=== PATIENT | male | born 1995 | race Caucasian/White ===

== ENCOUNTER → 2016-08-24 | Outpatient (CLI) | payer BC ==
--- NOTE | 2016-08-24 18:49 | MR ---
PRE AND POSTCONTRAST ENHANCED MRI OF THE BRAIN: CLINICAL HISTORY: Headaches CONTRAST: 20 ML Multihance COMPARISON: June 22, 2012 Multiplanar and multispin-echo imaging of the brain was performed both before and after the administr ation of contrast. The ventricles, basal cisterns and sulci overlying the cerebral convexities are within normal limits. There is no evidence for midline shift or mass effect. Acute intracranial hemorrhage or extra-axial collection is not evident. Again noted and essentially unchanged is increased signal on the T2 weighted data set posterior right parietal lobe measuring 3. 1 x 1.9 cm. No significant enhancement is identified. While this could r eflect an area of remote insult or postoperative change if there is such a history, low grade glioma is not excluded. Following contrast administration, there is no evidence for pathologic enhancement or enhancing mass. The paranasal sinuses demonstrate small mucous retention cyst left maxillary sinus. Mastoid air cells are well-aerated. IMPRESSION: Stable evaluation of the brain. See above discussion.
== END | disposition home or self-care (01) ==
LOC: RADMRIMAIN 17:51
PROVIDERS: ATTEND Psychiatry & Neurology Neurology
DX: D49.6 Neoplasm of unspecified behavior of brain (principal)
CPT/HCPCS: 70553; A9577

== ENCOUNTER 2017-11-29 20:10 | Observation (INO) | payer BC ==
[2017-11-29] MEDS ORDERED: PANTOPRAZOLE 40 MG/10 ML VIAL IVP STA (20:46)
[2017-11-29] MEDS ORDERED: SODIUM CHLORIDE 0.9% 500 ML IV STA (20:46)
--- NOTE | 2017-11-29 21:29 | ED ---
General Adult HPI - General Chief complaint: GI Bleed Stated complaint: rectal bleeding Time Seen by Provider: 11/29/17 20:45 Source: patient, RN notes reviewed, old records reviewed Mode of arrival: wheelchair Limitations: no limitations - History of Present Illness Initial comments: This is a 22-year-old male the ER for evaluation. Patient states he feels very weak, significant blood per rectum 4-5 days. Increased weakness lightheadedness and dizziness with activity earlier today. Patient has had prior history of colonoscopy with history of hemorrhoids - Related Data Home Medications Medication Instructions Recorded Confirmed Multivitamins, Thera [Multivitamin 1 tab PO DAILY 11/29/17 11/29/17 (formulary)] Naproxen Sodium [Aleve] 220 mg PO BID PRN 11/29/17 11/29/17 Allergies Allergy/AdvReac Type Severity Reaction Status Date / Time Penicillins Allergy Rash/Hives Verified 11/29/17 20:58 Review of Systems ROS Statement: Those systems with pertinent positive or pertinent negative responses have been documented in the HPI. ROS Other: All systems not noted in ROS Statement are negative. Past Medical History Past Medical History: GI Bleed Additional Past Medical History / Comment(s): Polyps; Closed head injury History of Any Multi-Drug Resistant Organisms: None Reported Past Surgical History: Tonsillectomy Additional Past Surgical History / Comment(s): colonoscopy Past Psychological History: No Psychological Hx Reported Smoking Status: Never smoker Past Alcohol Use History: None Reported Past Drug Use History: None Reported General Exam - General Exam Comments Initial Comments: Pale Limitations: no limitations General appearance: alert, in no apparent distress Head exam: Present: atraumatic, normocephalic, normal inspection Eye exam: Present: normal appearance, PERRL, EOMI. Absent: scleral icterus, conjunctival injection, periorbital swelling ENT exam: Present: normal exam, mucous membranes moist Neck exam: Present: normal inspection. Absent: tenderness, meningismus, lymphadenopathy Respiratory exam: Present: normal lung sounds bilaterally. Absent: respiratory distress, wheezes, rales, rhonchi, stridor Cardiovascular Exam: Present: regular rate, normal rhythm, normal heart sounds. Absent: systolic murmur, diastolic murmur, rubs, gallop, clicks GI/Abdominal exam: Present: soft, normal bowel sounds. Absent: distended, tenderness, guarding, rebound, rigid Extremities exam: Present: normal inspection, full ROM, normal capillary refill. Absent: tenderness, pedal edema, joint swelling, calf tenderness Back exam: Present: normal inspection Neurological exam: Present: alert, oriented X3, CN II-XII intact Psychiatric exam: Present: normal affect, normal mood Skin exam: Present: warm, dry, intact, normal color. Absent: rash Course Vital Signs 11/29/17 11/29/17 20:36 21:50 Temperature 97.9 F 97.8 F Pulse Rate 101 H 85 Respiratory 18 20 Rate Blood Pressure 123/84 137/67 O2 Sat by Pulse 99 97 Oximetry - Reevaluation(s) Reevaluation #1: A she becomes very syncopal with attempt to walk or move Medical Decision Making - Medical Decision Making 22 male the ER for evaluation. Positive bright red blood per rectum, history of hemorrhoids. Patient feels light headed syncopal, near syncopal with walking and worse with movement. Patient will be admitted for monitoring of hemoglobin - Lab Data Result diagrams: 11/30/17 06:18 11/29/17 21:05 Lab Results 11/29/17 11/29/17 11/29/17 Range/Units 21:05 21:05 21:05 WBC 10.5 (3.8-10.6) k/uL RBC 4.99 (4.30-5.90) m/uL Hgb 14.2 (13.0-17.5) gm/dL Hct 42.0 (39.0-53.0) % MCV 84.1 (80.0-100.0) fL MCH 28.5 (25.0-35.0) pg MCHC 33.8 (31.0-37.0) g/dL RDW 12.3 (11.5-15.5) % Plt Count 378 (150-450) k/uL Neutrophils % 61 % Lymphocytes % 29 % Monocytes % 6 % Eosinophils % 1 % Basophils % 1 % Neutrophils # 6.3 (1.3-7.7) k/uL Lymphocytes # 3.0 (1.0-4.8) k/uL Monocytes # 0.6 (0-1.0) k/uL Eosinophils # 0.2 (0-0.7) k/uL Basophils # 0.1 (0-0.2) k/uL PT (9.0-12.0) sec INR (<1.2) APTT (22.0-30.0) sec Sodium 138 (137-145) mmol/L Potassium 4.7 (3.5-5.1) mmol/L Chloride 104 (98-107) mmol/L Carbon Dioxide 23 (22-30) mmol/L Anion Gap 11 mmol/L BUN 15 (9-20) mg/dL Creatinine 0.99 (0.66-1.25) mg/dL Est GFR (CKD-EPI)AfAm >90 (>60 ml/min/1.73 sqM) Est GFR (CKD-EPI)NonAf >90 (>60 ml/min/1.73 sqM) Glucose 95 (74-99) mg/dL Calcium 9.5 (8.4-10.2) mg/dL Magnesium 1.8 (1.6-2.3) mg/dL Total Bilirubin 0.5 (0.2-1.3) mg/dL AST 31 (17-59) U/L ALT 59 (21-72) U/L Alkaline Phosphatase 64 (38-126) U/L Total Creatine Kinase 56 (55-170) U/L CK-MB (CK-2) 0.3 (0.0-2.4) ng/mL CK-MB (CK-2) Rel Index 0.5 Troponin I <0.012 (0.000-0.034) ng/mL Total Protein 7.2 (6.3-8.2) g/dL Albumin 4.3 (3.5-5.0) g/dL Lipase 103 (23-300) U/L Blood Type Blood Type Recheck Antibody Screen Spec Expiration Date 11/29/17 11/29/17 Range/Units 21:05 21:05 WBC (3.8-10.6) k/uL RBC (4.30-5.90) m/uL Hgb (13.0-17.5) gm/dL Hct (39.0-53.0) % MCV (80.0-100.0) fL MCH (25.0-35.0) pg MCHC (31.0-37.0) g/dL RDW (11.5-15.5) % Plt Count (150-450) k/uL Neutrophils % % Lymphocytes % % Monocytes % % Eosinophils % % Basophils % % Neutrophils # (1.3-7.7) k/uL Lymphocytes # (1.0-4.8) k/uL Monocytes # (0-1.0) k/uL Eosinophils # (0-0.7) k/uL Basophils # (0-0.2) k/uL PT 10.3 (9.0-12.0) sec INR 1.0 (<1.2) APTT 24.2 (22.0-30.0) sec Sodium (137-145) mmol/L Potassium (3.5-5.1) mmol/L Chloride (98-107) mmol/L Carbon Dioxide (22-30) mmol/L Anion Gap mmol/L BUN (9-20) mg/dL Creatinine (0.66-1.25) mg/dL Est GFR (CKD-EPI)AfAm (>60 ml/min/1.73 sqM) Est GFR (CKD-EPI)NonAf (>60 ml/min/1.73 sqM) Glucose (74-99) mg/dL Calcium (8.4-10.2) mg/dL Magnesium (1.6-2.3) mg/dL Total Bilirubin (0.2-1.3) mg/dL AST (17-59) U/L ALT (21-72) U/L Alkaline Phosphatase (38-126) U/L Total Creatine Kinase (55-170) U/L CK-MB (CK-2) (0.0-2.4) ng/mL CK-MB (CK-2) Rel Index Troponin I (0.000-0.034) ng/mL Total Protein (6.3-8.2) g/dL Albumin (3.5-5.0) g/dL Lipase (23-300) U/L Blood Type O Positive Blood Type Recheck No Antibody Screen NEGATIVE Spec Expiration Date 12/02/2017 - 2304 Disposition Clinical Impression: Gastrointestinal hemorrhage, Hemorrhoids Disposition: ADMITTED IP TO THIS HOSP Condition: Good Is patient prescribed a controlled substance at d/c from ED?: No
[2017-11-29 21:33] LABS: Basophils # (A) 0.1 k/uL (0-0.2); Basophils % (A) 1 %; Eosinophils # (A) 0.2 k/uL (0-0.7); Eosinophils % (A) 1 %; HGB 14.2 gm/dL (13.0-17.5); Lymphocytes % (A) 29 %; MCH 28.5 pg (25.0-35.0); MCHC 33.8 g/dL (31.0-37.0); MCV 84.1 fL (80.0-100.0); Mean Platelet Volume 5.7; Monocytes # (A) 0.6 k/uL (0-1.0); Monocytes % (A) 6 %; Neutrophils # (A) 6.3 k/uL (1.3-7.7); Neutrophils % (A) 61 %; Platelet Count 378 k/uL (150-450); RBC 4.99 m/uL (4.30-5.90); RDW 12.3 % (11.5-15.5); WBC 10.5 k/uL (3.8-10.6)
[2017-11-29 21:41] LABS: Partial Thromboplastin Time 24.2 sec (22.0-30.0); Prothrombin Time 10.3 sec (9.0-12.0)
[2017-11-29 21:45] LABS: ALT 59 U/L (21-72); AST 31 U/L (17-59); Albumin 4.3 g/dL (3.5-5.0); Alkaline Phosphatase 64 U/L (38-126); Anion Gap 11 mmol/L; Blood Urea Nitrogen 15 mg/dL (9-20); Calcium 9.5 mg/dL (8.4-10.2); Carbon Dioxide 23 mmol/L (22-30); Chloride 104 mmol/L (98-107); Glucose 95 mg/dL (74-99); Lipase 103 U/L (23-300); Magnesium 1.8 mg/dL (1.6-2.3); Potassium 4.7 mmol/L (3.5-5.1); Sodium 138 mmol/L (137-145); Total Bilirubin 0.5 mg/dL (0.2-1.3); Total Protein 7.2 g/dL (6.3-8.2)
[2017-11-29] MEDS ORDERED: ONDANSETRON 4 MG/2 ML VIAL IVP STA (21:48)
[2017-11-29] MEDS ORDERED: ONDANSETRON 4 MG/2 ML VIAL IVP PRN (21:48)
[2017-11-29] MEDS ORDERED: SODIUM CHLORIDE 0.9% 1,000 ML IV STA (21:48)
[2017-11-29 21:55] LABS: Creatine Kinase 56 U/L (55-170)
[2017-11-30 04:09] LABS: Creatine Kinase MB 0.3 ng/mL (0.0-2.4); Troponin I <0.012 ng/mL (0.000-0.034)
[2017-11-30 04:43] VITALS: BMI 39.8
[2017-11-30 07:18] LABS: Basophils % (A) 0 %; Eosinophils # (A) 0.1 k/uL (0-0.7); Eosinophils % (A) 1 %; HCT 41.5 % (39.0-53.0); HGB 13.8 gm/dL (13.0-17.5); Lymphocytes # (A) 2.2 k/uL (1.0-4.8); Lymphocytes % (A) 29 %; MCH 28.5 pg (25.0-35.0); MCHC 33.3 g/dL (31.0-37.0); MCV 85.6 fL (80.0-100.0); Mean Platelet Volume 6.1; Monocytes # (A) 0.5 k/uL (0-1.0); Monocytes % (A) 6 %; Neutrophils # (A) 4.6 k/uL (1.3-7.7); Neutrophils % (A) 60 %; Platelet Count 371 k/uL (150-450); RBC 4.84 m/uL (4.30-5.90); RDW 12.4 % (11.5-15.5); WBC 7.7 k/uL (3.8-10.6)
[2017-11-30] MEDS: PANTOPRAZOLE 40 MG/10 ML VIAL IVP SCH ×2 (11:47→21:38)
[2017-11-30] MEDS: SODIUM CHLORIDE 0.9% 1,000 ML IV SCH (11:47)
--- NOTE | 2017-11-30 14:03 | P.HPIM ---
History of Present Illness H&P Date: 11/30/17 Chief Complaint: Rectal bleeding 22-year-old male who presented to the emergency room with a chief complaint of rectal bleeding. The patient reports he was having bright red blood with bowel movements over the past few days. He reports straining with only one of his bowel movements. He reports feeling weak all over. He states he has had some mild intermittent abdominal pain. Denies shortness of breath. Denies chest pain. Denies fever or chills. He states he had a colonoscopy approximately 3 years ago due to rectal bleeding and was found to have internal hemorrhoids. Laboratory data reveals CBC and CMP within normal limits. Hemoglobin 14.2 on admission. Repeat today is 13.9. The patient denies any rectal bleeding this morning. Review of Systems Those systems with pertinent positive or pertinent negative responses have been documented in the HPI Past Medical History Past Medical History: GI Bleed Additional Past Medical History / Comment(s): Closed head injury, hemorrhoids History of Any Multi-Drug Resistant Organisms: None Reported Past Surgical History: Tonsillectomy Additional Past Surgical History / Comment(s): colonoscopy - polys removed Past Anesthesia/Blood Transfusion Reactions: No Reported Reaction Past Psychological History: No Psychological Hx Reported Smoking Status: Never smoker Past Alcohol Use History: None Reported Past Drug Use History: None Reported Medications and Allergies Home Medications Medication Instructions Recorded Confirmed Type Multivitamins, Thera [Multivitamin 1 tab PO DAILY 11/29/17 11/29/17 History (formulary)] Naproxen Sodium [Aleve] 220 mg PO BID PRN 11/29/17 11/29/17 History Allergies Allergy/AdvReac Type Severity Reaction Status Date / Time Penicillins Allergy Rash/Hives Verified 11/29/17 20:58 Physical Exam Vitals: Vital Signs Temp Pulse Pulse Resp BP BP Pulse Ox 11/30/17 07:17 98.2 F 76 16 151/90 98 11/30/17 04:00 20 11/30/17 00:00 20 11/29/17 21:50 97.8 F 85 20 137/67 97 11/29/17 20:36 97.9 F 101 H 18 123/84 99 Intake and Output 11/29/17 11/30/17 11/30/17 22:59 06:59 14:59 Other: Voiding Method Toilet Weight 140.614 kg 140.614 kg GENERAL: This is a 22-year-old male in no apparent distress at the time of examination. HEENT: Head is atraumatic, normocephalic. Pupils are equal, round, and reactive to light. Sclerae anicteric. Conjunctivae are clear. Mucus membranes of the mouth are moist. Neck is supple. RESPIRATORY: Clear to ausculation. No wheezes, rales, or rhonchi. No use of accessory muscles. Patient maintaining oxygen saturation greater than 92% CARDIOVASCULAR: Regular rate and rhythm. S1 and S2 noted. No systolic or diastolic murmur auscultated. No JVD noted. No S3 or S4 noted. GASTROINTESTINAL: No distention noted. Abdomen soft and round. Bowel sounds auscultated x 4 quadrants. INTEGUMENTARY: No cyanosis. No jaundice. No rashes noted. No cellulitis noted. EXTREMITIES: 2+ peripheral pulses. No evidence of peripheral edema. No calf tenderness noted. NEUROLOGIC: Cranial nerves II-XII intact. PSYCHIATRIC: Awake, alert, and oriented X 3. Results CBC & Chem 7: 11/30/17 06:18 11/29/17 21:05 Assessment and Plan Plan: ASSESSMENT: Rectal bleeding suspect due to internal hemorrhoids PLAN: Dr. Hickman on consult. Await further recommendations and input. Continue IV protonix and IV fluids. Further recommendations pending patient's course Nurse practitioner note has been reviewed by physician. Signing provider agrees with the documented findings, assessment, and plan of care.
[2017-11-30 20:07] VITALS: RESP 18
[2017-12-01] MEDS: SODIUM CHLORIDE 0.9% 1,000 ML IV SCH (00:25)
[2017-12-01 07:04] LABS: Basophils % (A) 1 %; Eosinophils # (A) 0.1 k/uL (0-0.7); Eosinophils % (A) 1 %; HCT 43.8 % (39.0-53.0); HGB 14.2 gm/dL (13.0-17.5); Lymphocytes # (A) 1.9 k/uL (1.0-4.8); Lymphocytes % (A) 32 %; MCH 27.7 pg (25.0-35.0); MCHC 32.5 g/dL (31.0-37.0); MCV 85.1 fL (80.0-100.0); Mean Platelet Volume 6.1; Monocytes # (A) 0.4 k/uL (0-1.0); Monocytes % (A) 6 %; Neutrophils # (A) 3.5 k/uL (1.3-7.7); Neutrophils % (A) 58 %; Platelet Count 399 k/uL (150-450); RBC 5.14 m/uL (4.30-5.90); RDW 12.2 % (11.5-15.5); WBC 6.1 k/uL (3.8-10.6)
--- NOTE | 2017-12-01 07:31 | P.GSCN ---
History of Present Illness Consult date: 11/30/17 Reason for Consult: GI bleed History of present illness: this a 22-year-old male who was admitted through the emergency room with bright red blood per rectum. Patient states that he had a vvisualize blood on the toilet paper. He is currently sleeping in bed. He has no complaints. Past Medical History Past Medical History: GI Bleed Additional Past Medical History / Comment(s): Polyps; Closed head injury History of Any Multi-Drug Resistant Organisms: None Reported Past Surgical History: Tonsillectomy Additional Past Surgical History / Comment(s): colonoscopy Past Anesthesia/Blood Transfusion Reactions: No Reported Reaction Past Psychological History: No Psychological Hx Reported Smoking Status: Never smoker Past Alcohol Use History: None Reported Past Drug Use History: None Reported Medications and Allergies Home Medications Medication Instructions Recorded Confirmed Type Multivitamins, Thera [Multivitamin 1 tab PO DAILY 11/29/17 11/29/17 History (formulary)] Naproxen Sodium [Aleve] 220 mg PO BID PRN 11/29/17 11/29/17 History Allergies Allergy/AdvReac Type Severity Reaction Status Date / Time Penicillins Allergy Rash/Hives Verified 11/29/17 20:58 Surgical - Exam Vital Signs Temp Pulse Resp BP Pulse Ox 97.9 F 101 H 18 123/84 99 11/29/17 20:36 11/29/17 20:36 11/29/17 20:36 11/29/17 20:36 11/29/17 20:36 - General well developed, no distress - Eyes PERRL - ENT normal pinna - Neck no masses - Respiratory normal expansion - Cardiovascular Rhythm: regular - Abdomen Abdomen: soft, non tender Results - Labs 12/01/17 06:02 11/29/17 21:05 Assessment and Plan Assessment: patient's hemoglobin is stable at 13 range. He most likely has a small hemorrleed. Patient will be discharged and plan for outpatient colonoscopy if his hemoglobin remains stable.
[2017-12-01 09:08] VITALS: BP 132/74; PULSE 83; TEMP 98.7
--- NOTE | 2017-12-01 09:40 | P.DS ---
Providers Date of admission: 11/29/17 21:47 Expected date of discharge: 12/01/17 Attending physician: Rupert Smith Consults: 11/29/17 21:47 Consult Physician Routine Consulting Provider: Nawaf Hickman Consult Reason/Comments: gib Do you want consulting provider notified?: Yes Primary care physician: Rupert Smith [facility] Course: 22-year-old male who presented to the emergency room with a chief complaint of rectal bleeding. The patient reports he was having bright red blood with bowel movements over the past few days. He reports straining with only one of his bowel movements. He reports feeling weak all over. He states he has had some mild intermittent abdominal pain. Denies shortness of breath. Denies chest pain. Denies fever or chills. He states he had a colonoscopy approximately 3 years ago due to rectal bleeding and was found to have internal hemorrhoids. Laboratory data reveals CBC and CMP within normal limits. Hemoglobin 14.2 on admission and remains stable. lastest hemoglobin 14.2. Patient was evaluated by Dr. Hickman. Patient to see him on an outpatient basis for colonoscopy. Patient was deemed stable for discharge. Discharge Diagnosis Rectal bleeding suspect due to internal hemorrhoids, stable Nurse practitioner note has been reviewed by physician. Signing provider agrees with the documented findings, assessment, and plan of care. Patient Condition at Discharge: Good Plan - Discharge Summary New Discharge Prescriptions: Continue Naproxen Sodium [Aleve] 220 mg PO BID PRN PRN Reason: Pain Multivitamins, Thera [Multivitamin (formulary)] 1 tab PO DAILY Discharge Medication List Multivitamins, Thera [Multivitamin (formulary)] 1 tab PO DAILY 11/29/17 [History ] Naproxen Sodium [Aleve] 220 mg PO BID PRN 11/29/17 [History] Follow up Appointment(s)/Referral(s): Rupert Smith DO [Primary Care Provider] - 1 Week Nawaf Hickman MD [STAFF PHYSICIAN] - 12/07/17 4:00 pm Patient Instructions/Handouts: Gastrointestinal Bleeding (ED) Discharge Disposition: HOME SELF-CARE
== END 2017-12-01 09:40 | disposition home or self-care (01) ==
LOC: EC 20:10 → 3OBS 21:47
PROVIDERS: ADMIT Family Medicine; ATTEND Family Medicine
DX: K92.2 Gastrointestinal hemorrhage, unspecified (principal); K64.8 Other hemorrhoids; Z88.0 Allergy status to penicillin; R53.1 Weakness; R42 Dizziness and giddiness; R55 Syncope and collapse; R10.9 Unspecified abdominal pain
CPT/HCPCS: 99285 ×2; 96361 ×3; 96374 ×2; 96375 ×2; 96376; 36415; 86900; 86901; 80053; 82550; 82553; 83690; 83735; 84484; 85025 ×3; 85610; 85730; 86850; G0378 ×3; J2405; C9113 ×2

== ENCOUNTER 2018-01-10 10:48 | Day surgery (SDC) | payer BC ==
[2018-01-04 08:36] VITALS: BMI 41.1
[~2018-01-10 10:48] MED LIST: LACTATED RINGERS 1,000 ML IV SCH; LIDOCAINE 1% 20 ML VIAL (10MG/ML) FOR IV START INTRADERMA PRN
[2018-01-10 11:50] VITALS: TEMP 98
[2018-01-10] MEDS ORDERED: ONDANSETRON 4 MG/2 ML VIAL IVP ONE (12:04)
[2018-01-10] MEDS ORDERED: PROPOFOL 10 MG/ML 20 ML VIAL IV ONE ×2 (14:07)
--- NOTE | 2018-01-10 14:11 | P.GSHP ---
History of Present Illness H&P Date: 01/10/18 Chief Complaint: GI bleed [id number] male who presents today for colonoscopy. He's had issues rectal bleeding. Past Medical History Past Medical History: GI Bleed Additional Past Medical History / Comment(s): Polyps; Closed head injury, recent admission due to rectal bleeding History of Any Multi-Drug Resistant Organisms: None Reported Past Surgical History: Tonsillectomy Additional Past Surgical History / Comment(s): colonoscopy Past Anesthesia/Blood Transfusion Reactions: Motion Sickness, Postoperative Nausea & Vomiting (PONV) Smoking Status: Never smoker - Past Family History Mother Family Medical History: No Reported History Medications and Allergies Home Medications Medication Instructions Recorded Confirmed Type Multivitamins, Thera [Multivitamin 1 tab PO DAILY 11/29/17 01/10/18 History (formulary)] Inulin/Chromium Picolinate [Fiber 1 each PO DAILY 01/04/18 01/10/18 History Gummies Chew] Allergies Allergy/AdvReac Type Severity Reaction Status Date / Time Penicillins Allergy Rash/Hives Verified 01/10/18 11:39 Surgical - Exam Vital Signs Temp Pulse Resp BP Pulse Ox 98.0 F 90 20 133/63 98 01/10/18 11:48 01/10/18 11:48 01/10/18 11:48 01/10/18 11:48 01/10/18 11:48 - General well developed, no distress - Eyes PERRL - ENT normal pinna - Neck no masses - Respiratory normal expansion - Cardiovascular Rhythm: regular - Abdomen Abdomen: soft, non tender Assessment and Plan Assessment: GI bleed. We'll perform colonoscopy.
--- NOTE | 2018-01-10 14:22 | P.OP ---
Date of Procedure: 01/10/18 Preoperative Diagnosis: GI bleed Postoperative Diagnosis: Internal hemorrhoids Procedure(s) Performed: Colonoscopy Anesthesia: MAC Surgeon: Nawaf Hickman Pathology: none sent Condition: stable Disposition: PACU Description of Procedure: The patient's placed on the endoscopy table in the lateral position. He received IV sedation. Digital rectal exam was performed which revealed internal hemorrhoids. The flexible colonoscope was then placed patient anus passed throughout the entire colon. The ileocecal valve was visualized. Cecum , ascending transverse colon appeared normal. The descending and sigmoid colon appeared normal. Scope was then brought back the rectum and this was normal. Scope was withdrawn through the anus and there were internal hemorrhoids noted. There is no active bleeding seen. The scope was withdrawn for patient.
[2018-01-10 14:30] VITALS: RESP 16
[2018-01-10 14:40] VITALS: BP 106/69; PULSE 82
--- NOTE | 2018-01-15 10:08 | CDI ---
Outpatient Documentation Clarification Form Date: 01/15/18 CDS/[employer] Administrator Name: Alix Cruz Phone: If any questions, call Lauryn Chan Stitching Department Supervisor at [phone] Patient Name: Heather Maldonado Admit Date: 01/10/18 Discharge Date: 01/10/18 ATTENTION: The [facility] Coding Staff appreciate your assistance in clarifying documentation. Please respond to the clarification below the line at the bottom and electronically sign. The [facility] Coding staff will review the response and follow-up if needed. Please note: Queries are made part of the Legal Health Record. If you have any questions, please contact the Stitching Department Supervisor. Dear Dr. Hickamn, What is the cause of the Gl bleeding? Our coding resources state that when GI or rectal bleeding is documented along with internal and/or external hemorrhoids, the physician must be queried to determine whether the bleeding is secondary to the hemorrhoids, or incidental. Thank you for your kind consideration. The bleeding may have been caused by hemorrhoids. There is no bleeding at the time of the exam MTDD
== END 2018-01-10 14:57 | disposition home or self-care (01) ==
LOC: ORWHC2ENDO 10:48
PROVIDERS: ATTEND Surgery
DX: K64.8 Other hemorrhoids (principal); E66.9 Obesity, unspecified; Z68.41 Body mass index [BMI] 40.0-44.9, adult; J30.81 Allergic rhinitis due to animal (cat) (dog) hair and dander; Z88.0 Allergy status to penicillin
CPT/HCPCS: 45378; J2405; J2704

== ENCOUNTER → 2022-02-23 | Outpatient (CLI) | payer OTHER ==
--- NOTE | 2022-02-23 09:19 | XR ---
EXAMINATION TYPE: XR Hip Limited RT DATE OF EXAM: 02/23/2022 COMPARISON: NONE HISTORY: Pain TECHNIQUE: one view is submitted FINDINGS: There is no evidence of erosive change or acute fracture. Joint space preserved. IMPRESSION: 1. No evidence of acute fracture or dislocation.
== END | disposition home or self-care (01) ==
LOC: RADXRMAIN 08:49
PROVIDERS: ATTEND Internal Medicine
DX: M25.551 Pain in right hip (principal)
CPT/HCPCS: 73501

== ENCOUNTER → 2022-03-16 | Outpatient (CLI) | payer OTHER ==
--- NOTE | 2022-03-16 11:09 | MR ---
EXAMINATION TYPE: MR hip RT wo con DATE OF EXAM: 03/16/2022 COMPARISON: Right hip x-ray February 23, 2022 HISTORY: Right hip pain. Standard multiplanar, multisequence MRI departmental protocol Multiplanar, multisequence images of the pelvis were acquired without contrast focusing on right hip. FINDINGS: Bone marrow signal intensity appears maintained. There is no suspicious increased T2 signal or edema in the right hip or proximal femur. No serpiginous low T1 signal to suggest avascular necro sis. Femoral head shape maintained. No significant hip joint effusion seen bilaterally. No suspicious fluid signal or tearing at level of the greater trochanter. No groin hernia or adenopat hy seen bilaterally. Muscle bulk is maintained bilaterally. Labrum appears grossly intact given limit ation of a nonarthrogram study. Prostate gland appears within normal limits. No suspicious bowel dilatation. No concerning pelvic flu id collection. Normal-appearing appendix is noted in the right lower quadrant from the base of the ce cum. IMPRESSION: Fairly unremarkable study.
== END | disposition home or self-care (01) ==
LOC: RADMRIMAIN 07:29
PROVIDERS: ATTEND Internal Medicine
DX: M25.551 Pain in right hip (principal)

== ENCOUNTER → 2023-11-06 | Outpatient (CLI) | payer OTHER ==
--- NOTE | 2023-11-06 10:41 | XR ---
EXAMINATION TYPE: XR ankle complete LT DATE OF EXAM: 11/06/2023 COMPARISON: NONE HISTORY: Pain FINDINGS: Three views of the ankle demonstrate the ankle mortise to be intact and symmetric. The joint spaces are preserved. The osseous structures are intact. A tiny calcaneal spurs. IMPRESSION: 1. Tiny calcaneal spurs.
--- NOTE | 2023-11-06 10:47 | XR ---
EXAMINATION TYPE: XR foot complete LT DATE OF EXAM: 11/06/2023 COMPARISON: NONE HISTORY: Pain TECHNIQUE: Three views are submitted. FINDINGS: The osseous structures are intact. There is no acute fracture or dislocation. Joint spaces are p reserved. Tiny calcaneal spurs. IMPRESSION: 1. No acute fracture or dislocation. If symptoms persist, follow-up exam in 7 to 10 days could be ob tained.
== END | disposition home or self-care (01) ==
LOC: RADXRMAIN 10:02
PROVIDERS: ATTEND Internal Medicine
DX: M77.32 Calcaneal spur, left foot (principal)

== ENCOUNTER → 2024-04-01 | Outpatient (CLI) | payer OTHER ==
--- NOTE | 2024-04-01 17:59 | XR ---
EXAMINATION TYPE: XR shoulder complete RT, XR elbow complete RT, XR hand limited bilateral DATE OF EXAM: 04/01/2024 5:13 PM COMPARISON: None available. CLINICAL INDICATION: Male, 28 years old with history of M25.511,M25.521,M79.641,M79.642,M79.89; [facility] TECHNIQUE: XR shoulder complete RT, XR elbow complete RT, XR hand limited bilateral; examined in AP, internally rotated and scapular Y projections. FINDINGS: Right shoulder: No evidence of acute osseous pathology, joint dislocation, or soft tissue swelling. The remaining po rtions of the visualized chest are unremarkable. Mild degeneration changes of the acromion and dista l clavicle. Right elbow: No acute fracture or dislocation. No evidence of intrahepatic body. No focal osseous erosion or aggre ssive periosteal reaction. No significant elbow joint effusion. Bilateral hands: No acute fracture or dislocation. Joint spaces appear grossly maintained. Carpal alignment maintained . No focal osseous erosion or aggressive periosteal reaction. No unexpected radio opaque foreign body . IMPRESSION: Right shoulder: No acute osseous abnormality. Right elbow: No acute osseous abnormality. Bilateral hands: No acute osseous abnormality. [facility], , 04/01/2024 5:57 PM
== END | disposition home or self-care (01) ==
LOC: RADXRMAIN 16:39
PROVIDERS: ATTEND Family Medicine
DX: M25.511 Pain in right shoulder (principal); M25.521 Pain in right elbow; M79.641 Pain in right hand; M79.642 Pain in left hand; M79.89 Other specified soft tissue disorders

== ENCOUNTER → 2024-05-22 | Outpatient (CLI) | payer OTHER ==
[2024-05-22 17:26] LABS: Eosinophils # (A) 0.33 X 10*3/uL (0.04-0.35); Eosinophils % (A) 3.3 %; HCT 43.1 % (39.6-50.0); HGB 14.2 g/dL (13.0-17.0); Lymphocytes # (A) 2.78 X 10*3/uL (0.90-5.00); Lymphocytes % (A) 27.5 %; MCH 28.7 pg (27.0-32.0); MCHC 32.9 g/dL (32.0-37.0); MCV 87.2 FL (80.0-97.0); Monocytes # (A) 0.66 X 10*3/uL (0.20-1.00); Monocytes % (A) 6.5 %; NRBC Per 100 WBC 0 X 10*3/uL (0.00-0.01); Neutrophils # (A) 6.19 X 10*3/uL (1.80-7.70); Neutrophils % (A) 61.2 %; Platelet Count 430 X 10*3/uL (140-440); RBC 4.94 X 10*6/uL (4.40-5.60); RDW 12.5 % (11.5-14.5); WBC 10.11 X 10*3/uL (4.50-10.00)
[2024-05-22 17:35] LABS: Chol/HDL Ratio 3.41 Ratio; LDL Cholesterol,Calculated 82.5 mg/dL (0.0-131.0); VLDL Calculation 14.28 mg/dL (5.00-40.00)
[2024-05-22 17:36] LABS: ALT 45 U/L (10-49); AST 31 U/L (14-35); Albumin 4.3 g/dL (3.8-4.9); Albumin/Globulin Ratio 1.34 Ratio (1.60-3.17); Alkaline Phosphatase 71 U/L (41-126); BUN/Creat Ratio 16.14 Ratio (12.00-20.00); Blood Urea Nitrogen 11.3 mg/dL (9.0-27.0); Calcium 9.2 mg/dL (8.7-10.3); Carbon Dioxide 23.2 mmol/L (21.6-31.8); Chloride 104 mmol/L (96-109); Globulin 3.2 g/dL (1.6-3.3); Glucose 82 mg/dL (70-110); Potassium 4.3 mmol/L (3.5-5.5); Sodium 139 mmol/L (135-145); Total Bilirubin 0.4 mg/dL (0.3-1.2); Total Protein 7.5 g/dL (6.2-8.2)
== END | disposition home or self-care (01) ==
LOC: LABWHC1 09:59
PROVIDERS: ATTEND Internal Medicine
DX: Z00.00 Encounter for general adult medical examination without abnormal findings (principal)
CPT/HCPCS: 36415; 80053; 80061; 84443; 85025

== ENCOUNTER → 2024-09-12 | Outpatient (CLI) | payer OTHER ==
--- NOTE | 2024-09-12 11:48 | XR ---
EXAMINATION TYPE: XR foot complete RT, XR toes RT DATE OF EXAM: 09/12/2024 CLINICAL INDICATION: Male, 29 years old with history of M79.674 PAIN IN RIGHT TOE(S), pain after inju ry TECHNIQUE: Frontal, lateral, and oblique images of the right foot and first toe are obtained. COMPARISON: None FINDINGS: There is no acute fracture/dislocation evident in the right foot and first toe. The joint spaces in the right foot and first toe appear within normal limits. The overlying soft tissue appea rs unremarkable. IMPRESSION: There is no acute fracture or dislocation in the right foot or first toe. [facility], , 09/12/2024 11:46 AM
== END | disposition home or self-care (01) ==
LOC: RADXRMAIN 11:14
PROVIDERS: ATTEND Internal Medicine
DX: M79.674 Pain in right toe(s) (principal)